=== PATIENT | female | born 1975 | race Caucasian/White ===

== ENCOUNTER 2022-05-11 13:22 | Outpatient (RCR) | payer OTHER, SELFPAY ==
--- NOTE | 2022-05-11 14:31 | PTOPEVAL1 ---
Assessment and note entered by Odalis Reyez DPT Evaluation Information Assessment Status Evaluation Reported Pain Level Pain Score 0: Self Report Additional Pain Score Comments Patient reports a history of significant back pain which is flared up right now. Urinates 4-8 times a day, 2-3 times at night. Typically no pain with urination. Urine leakage on average once a week, sometimes full amount of bladder and has trouble stopping. Will get urge incontinence on the way to the bathroom. BM 1-2 times a week but reports recent trouble holding bowels (since her colonoscopy about 1.5 years ago). Will keep supplies in her car if she needs to defecate while out. Sometimes mild straining pain. Reports pain with intercourse in the past and with pelvic exams , pain 10/10 at highest and 0/10 lowest. Will get pelvic pain sometimes the way she sits. Pt has had 4 vaginal deliveries, with significant tearing. Assessment PT Clinical Summary The patient is presenting to skilled therapy with a history of urinary and fecal incontinence. She demonstrates decreased core strength and likely pelvic floor strength (will be assessed next visit secondary to back pain today) which are contributing to her incontinence. She will benefit from therapy to address these impairments and safely reduce dysfunction. Plan of Care Interventions Electrical Stimulation,Hot Pack/Cold Pack,Manual Therapy,Neuro Re-education,Patient/Caregiver Education,Therapeutic Activities,Therapeutic Exercise,Self-Care/Home Management PT Services Indicated Yes Treatment Frequency and 1 time a week for 4 weeks Duration These treatments will address the objective and functional deficits as defined above. The patient will be advanced safely and appropriately in order for the patient to progress towards his/her prior level of function. Additional exercises will be introduced and as well as a comprehensive home exercise program upon discharge, if needed, ?to ensure carryover of functional gains achieved in the clinic. This treatment plan has been reviewed and agreement upon by the patient.
--- NOTE | 2022-05-15 13:59 | PCPTNOTE ---
Patient called & cancelled scheduled appointment this date due to having to take a family member to the ER
--- NOTE | 2022-06-28 15:17 | PTOPDC ---
Assessment and note entered by Odalis Reyez, DPT Evaluation Information Assessment Status Discharge - Pt Not Presen Assessment PT Clinical Summary Patient has not attended therapy since her initial evaluation. Per our attendance policy, she will be discharged this date. She will need a new script to resume therapy in the future.
== END 2022-07-25 13:02 | disposition home or self-care (01) ==
LOC: ANHPT 13:22
PROVIDERS: PCP Internal Medicine; Visit Provider Physician Assistant
DX: N39.3 Stress incontinence (female) (male) (principal)
CPT/HCPCS: 97110; 97162; 99199